=== PATIENT | male | born 1990 | race Caucasian/White ===

== ENCOUNTER 2024-07-11 09:08 | Day surgery (SDC) | payer BC, MEDICAID ==
[2024-07-07 15:15] LABS: BASOPHILS % (AUTO) 0.7 % (0-1); EOSINOPHILS # (AUTO) 0.1 X10'3 (0-0.9); EOSINOPHILS % (AUTO) 1.6 % (0-6); LYMPHOCYTES # (AUTO) 2.1 X10'3 (1.1-4.8); LYMPHOCYTES % (AUTO) 31.1 % (21-51); MEAN CORPUSCULAR HEMOGLOBIN 31.8 PG (27.0-31.0); MEAN CORPUSCULAR HGB CONC 35.1 g/dL (33.0-36.5); MEAN CORPUSCULAR VOLUME 90.5 FL (78-98); MEAN PLATELET VOLUME 8.6 FL (7.4-10.4); MONOCYTES # (AUTO) 0.4 X10'3 (0-0.9); MONOCYTES % (AUTO) 6.3 % (2-12); NEUTROPHILS % (AUTO) 60.3 % (42-75); PRE OP HEMATOCRIT 47.4 % (42.0-52.0); PRE OP HEMOGLOBIN 16.7 g/dL (14.0-17.9); PRE OP PLATELET COUNT 233 X10'3 (140-440); PRE OP WHITE BLOOD COUNT 6.6 10'3 (4.8-10.8); RED BLOOD COUNT 5.24 X10'6 (4.70-6.10); RED CELL DISTRIBUTION WIDTH 13.3 % (11.5-14.5)
[2024-07-07 15:32] LABS: ALBUMIN 3.9 G/DL (3.4-5.0); ALBUMIN/GLOBULIN RATIO 1.1 (1.1-1.5); ALKALINE PHOSPHATASE 80 IU/L (46-116); BLOOD UREA NITROGEN 7 MG/DL (7-18); BUN/CREATININE RATIO 8.1 (10.0-20.0); CALCIUM 8.8 MG/DL (8.5-10.1); CHLORIDE 105 MMOL/L (99-107); CREATININE 0.86 MG/DL (0.60-1.10); PRE OP ALT 70 U/L (30-65); PRE OP ANION GAP 9 (8-16); PRE OP AST 30 U/L (10-37); PRE OP BILIRUB, TOTAL 0.5 MG/DL (0.0-1.0); PRE OP GLUCOSE 133 MG/DL (70-104); PRE OP POTASSIUM 3.5 MMOL/L (3.4-5.1); PRE OP SODIUM 140 MMOL/L (135-145); TOTAL CARBON DIOXIDE 25.7 MMOL/L (24-32); TOTAL PROTEIN 7.5 G/DL (6.4-8.2); eGFR > 90 ML/MIN
[~2024-07-11] VITALS: Ht 175.3 cm; Wt 117.9 kg
[2024-07-11] VITALS (12 sets, daily range): BP systolic 111–134; BP diastolic 62–83; PULSE 57–106; RESP 16–23; TEMP 97.4; O2SAT 92–99
[~2024-07-11 09:08] MED LIST: IBUPROFEN PO
[2024-07-11] MEDS: famotidine 20mg tablet PO ONE (09:55)
[2024-07-11] MEDS: cefazolin 2gm/D5W 100mL 100 ML IV ONE (09:56)
[2024-07-11] MEDS: ringers solution, lacted 1,000 ML IV SCH (09:56)
[2024-07-11] MEDS ORDERED: BUPIVAcaine 2.5mg/ml inj 50ml vial (contains preservative) ONE (12:00)
[2024-07-11] MEDS ORDERED: BUPIVACAINE liposomal/PF 13.3 MG/ML vial IM ONE (12:08)
[2024-07-11] MEDS ORDERED: BUPIVAcaine 0.5% inj/PF 30 ML ONE (12:08)
[2024-07-11] MEDS ORDERED: propofol inj 20 ML IV ONE (12:10)
[2024-07-11] MEDS ORDERED: dexamethasone sod phosphate 4mg/ml inj. ONE (12:10)
[2024-07-11] MEDS ORDERED: fentaNYL/PF 50MCG/1 ML 2ML syringe ONE (12:10)
[2024-07-11] MEDS ORDERED: LIDOcaine 2% (20mg/ml) 5ml vial ONE ×2 (12:10)
[2024-07-11] MEDS ORDERED: ondansetron/PF 4mg/2ml inj ONE (12:10)
[2024-07-11] MEDS ORDERED: midazolam 1 mg/ML 2ml injection ONE (12:10)
[2024-07-11] MEDS ORDERED: pneumococcal 23-VAL P-sac vacc 25 mcg/0.5ml vial IMVAC ONE (12:35)
[2024-07-11] MEDS ORDERED: sevoflurane 250ml liquid IH ONE (13:30)
[2024-07-11] MEDS ORDERED: acetaminophen 1,000mg/100ml IV 100 ML IV ONE (14:11)
[2024-07-11] MEDS ORDERED: morphine 2 MG/ML inj. syringe IV PRN (14:30)
[2024-07-11] MEDS ORDERED: fentaNYL/PF 50MCG/1 ML 2ML syringe IV PRN ×2 (14:30)
[2024-07-11] MEDS ORDERED: hydrALAZINE 20mg/ml inj. IV PRN (14:30)
[2024-07-11] MEDS ORDERED: ringers solution, lacted 1,000 ML IV SCH (14:30)
[2024-07-11] MEDS ORDERED: morphine 4 MG/ML inj SYRINge IV PRN (14:30)
[2024-07-11] MEDS ORDERED: labetalol 20mg/4ml (5mg/ml) syringe IV PRN (14:30)
[2024-07-11] MEDS ORDERED: ketorolac trometh 30MG/ML vial 30 MG/ML VIAL ONE (14:48)
[2024-07-11] MEDS ORDERED: HYDROcodone/acetaminophen 10/325mg tab PO PRN (15:30)
[2024-07-11] MEDS: ondansetron/PF 4mg/2ml inj IV PRN (16:28)
[2024-07-11] MEDS ORDERED: scopolamine 1MG/72H patch 1 PATCH PATCH.TD.3 TD SCH (16:45)
[2024-07-11] MEDS: proCHLORperazine 10 MG/2 ml inj IV PRN (16:51)
== END 2024-07-11 17:25 | disposition home or self-care (01) ==
LOC: PAS 09:08
PROVIDERS: ATTEND Orthopaedic Surgery
DX: S46.212A Strain of muscle, fascia and tendon of other parts of biceps, left arm, initial encounter (principal); G89.18 Other acute postprocedural pain; E66.9 Obesity, unspecified; F17.200 Nicotine dependence, unspecified, uncomplicated; Z79.1 Long term (current) use of non-steroidal anti-inflammatories (NSAID); Z79.891 Long term (current) use of opiate analgesic; Z98.890 Other specified postprocedural states; Z23 Encounter for immunization; Z68.38 Body mass index [BMI] 38.0-38.9, adult; X58.XXXA Exposure to other specified factors, initial encounter; Y93.89 Activity, other specified; Y92.89 Other specified places as the place of occurrence of the external cause; Y99.8 Other external cause status
CPT/HCPCS: 24340; 36415; 64415; 64417; 80053; 82948; 85025; 90732; C9290; J0131; J0690; J0780; J1100; J1885; J2250; J2405; J2704; J3010; J3490; J7030; J7120; Z7506; Z7508; Z7512; 90471; A4565; A4618; A6449; A7000

== ENCOUNTER 2025-07-29 20:04 | Emergency (ER) | payer BC, SELFPAY ==
[~2025-07-29] VITALS: Ht 175.3 cm; Wt 113.6 kg
[2025-07-29 20:07] VITALS: BP 136/69; PULSE 90; TEMP 98.5; O2SAT 98
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
--- NOTE | 2025-07-29 20:44 | RADIOLOGY REPORT ---
LUMBAR SPINE 3 VIEWS REASON FOR EXAM: felt "pop" wood splitting lumbar pain COMPARISON: None TECHNIQUE: AP and lateral views of the lumbar spine as well as a magnified lateral view of the lumbosacral junction are obtained. FINDINGS: Five lumbar type vertebra are identified. The vertebral body heights are maintained and there is no evidence of fracture. Alignment is normal. There is mild disc height loss at L3-L4 with early endplate hypertrophy. The soft tissues are unremarkable. Surgical clips are present in the right upper quadrant, likely secondary to prior cholecystectomy. IMPRESSION: No radiographic evidence of lumbar spine fracture or subluxationMild degenerative disc disease at L3-L4.
[2025-07-29 20:50] VITALS: RESP 16
[2025-07-29] MEDS: ketorolac trometh 30MG/ML vial 30 MG/ML VIAL IM ONE (20:50)
[2025-07-29] MEDS ORDERED: CYCL-1 PO (20:52)
[2025-07-29] MEDS ORDERED: IBUP-864 PO (20:52)
[2025-07-29] MEDS: ondansetron 4mg rapidly disintigrating tab PO ONE (20:57)
[2025-07-29] MEDS: HYDROcodone/acetaminophen 10/325mg tab PO ONE (20:57)
== END 2025-07-29 21:02 | disposition home or self-care (01) ==
LOC: ER 20:04
DX: S39.012A Strain of muscle, fascia and tendon of lower back, initial encounter (principal); Z87.19 Personal history of other diseases of the digestive system; X50.9XXA Other and unspecified overexertion or strenuous movements or postures, initial encounter; Y93.L1 Activity, splitting wood; Y92.89 Other specified places as the place of occurrence of the external cause; Y99.8 Other external cause status
CPT/HCPCS: 72100; 96372; 99284; J1885